=== PATIENT | female | born 1945 | race Caucasian/White ===

== ENCOUNTER 2018-05-26 08:31 | Observation (INO) | payer MEDICARE, OTHER ==
[2018-05-26] MEDS ORDERED: LORAZEPAM 0.5 MG TAB PO (12:00)
[2018-05-26] MEDS ORDERED: ZOLPIDEM 5 MG TAB PO (12:00)
[2018-05-26] MEDS ORDERED: ONDANSETRON 4 MG INJ IV (12:00)
[2018-05-26 12:44] LABS: CREATINE KINASE 71 IU/L (23-200)
[2018-05-26 12:56] LABS: CK INDEX 1.9; CK-MB 1.38 ng/ml (0.0-2.4); TROPONIN-I 0.043 ng/ml (0.000-0.120)
[2018-05-26] MEDS: AMLODIPINE 5 MG TAB PO (13:00)
[2018-05-26 16:49] LABS: ADD UMIC YES; UR ASCORBIC ACID NEGATIVE (NEGATIVE); UR BACTERIA FEW /HPF (NONE SEEN); UR BILIRUBIN (Dip) NEGATIVE (NEGATIVE); UR BLOOD (Dip) NEGATIVE (NEGATIVE); UR CLARITY SLIGHTLY CLOUDY (CLEAR); UR COLOR YELLOW (YELLOW); UR GLUCOSE (Dip) NEGATIVE (NEGATIVE); UR KETONES (Dip) NEGATIVE (NEGATIVE); UR LEUKOCYTE ESTERASE (Dip) 1+ Leu/ul (NEGATIVE); UR NITRITE (Dip) NEGATIVE (NEGATIVE); UR RBC 1 /HPF (0-5); UR SPECIFIC GRAVITY (Dip) 1.015 (1.003-1.030); UR SQUAMOUS EPITHELIAL CELL FEW /HPF (FEW); UR TOTAL PROTEIN (Dip) NEGATIVE (NEGATIVE); UR UROBILINOGEN (Dip) NEGATIVE (NEGATIVE); UR WBC 6 /HPF (0-5)
[2018-05-26] MEDS: PANTOPRAZOLE 40 MG INJ IV (17:48)
[2018-05-26 19:28] LABS: CREATINE KINASE 107 IU/L (23-200)
[2018-05-26 19:41] LABS: CK INDEX 1.9; CK-MB 2.05 ng/ml (0.0-2.4); TROPONIN-I 0.028 ng/ml (0.000-0.120)
[2018-05-26] MEDS: DOCUSATE SODIUM 100 MG CAP PO (21:00)
[2018-05-26] MEDS: SOD CHLORIDE 0.9% 1,000 ML IV (21:52)
[2018-05-27] MEDS: PANTOPRAZOLE 40 MG INJ IV ×2 (05:42→17:12)
[2018-05-27] MEDS ORDERED: PANTOPRAZOLE (EC) 40 MG TAB PO (06:00)
[2018-05-27 06:41] LABS: ADD MAN DIFF? NO
[2018-05-27 06:57] LABS: BASOPHILS % 0.2 % (0.0-2.0); EOSINOPHILS # 0.1 10^3/ul (0.0-0.5); EOSINOPHILS % 1.2 % (0.0-7.0); HEMATOCRIT 34.8 % (37.0-47.0); HEMOGLOBIN 10.6 g/dl (12.0-16.0); LYMPHOCYTES # 1.8 10^3/ul (0.8-2.9); LYMPHOCYTES % 27.5 % (15.0-51.0); MEAN CORPUSCULAR HGB CONC 30.5 g/dl (32.0-37.0); MEAN CORPUSCULAR VOLUME 88.5 fl (82.0-101.0); MEAN PLATELET VOLUME 10.4 fl (7.4-10.4); MONOCYTE # 0.6 10^3/ul (0.3-0.9); MONOCYTES % 8.5 % (0.0-11.0); NEUTROPHIL # 4.1 10^3/ul (1.6-7.5); NEUTROPHILS % 62.3 % (39.0-77.0); PLATELET COUNT 181 10^3/UL (140-415); RED BLOOD COUNT 3.93 10^6/ul (4.20-5.40); RED CELL DISTRIBUTION WIDTH 14.3 % (11.5-14.5)
[2018-05-27 06:57] LABS: WHITE BLOOD COUNT 6.5 10^3/ul (4.8-10.8)
[2018-05-27 07:30] LABS: ANION GAP 10 (5-13); BLOOD UREA NITROGEN 8 mg/dl (7-20); CALCIUM 7.9 mg/dl (8.4-10.2); CARBON DIOXIDE 26 mmol/L (21-31); CHLORIDE 110 mmol/L (97-110); CHOL/HDL RATIO 3.4 RATIO; CHOLESTEROL 124 mg/dl (100-200); CREATININE 0.75 mg/dl (0.44-1.00); GLUCOSE 94 mg/dl (70-220); HDL CHOLESTEROL 36 mg/dl (33-92); LDL CHOLESTEROL,CALCULATED 69 mg/dl; POTASSIUM 3.5 mmol/L (3.5-5.1); SODIUM 146 mmol/L (135-144); TRIGLYCERIDES 96 mg/dl (0-149)
[2018-05-27] MEDS: DOCUSATE SODIUM 100 MG CAP PO ×2 (09:00→20:43)
[2018-05-27] MEDS: LORATADINE 10 MG TAB PO (09:43)
[2018-05-27] MEDS: AMLODIPINE 5 MG TAB PO (09:44)
[2018-05-27] MEDS: ASPIRIN (EC) 81 MG TAB PO (09:44)
[2018-05-27] MEDS: ENOXAPARIN 40 MG/0.4 ML SYG SC (09:59)
[2018-05-27] MEDS: SOD CHLORIDE 0.9% 1,000 ML IV (11:26)
[2018-05-27] MEDS: PROPOFOL 20 ML (16:18)
[2018-05-27] MEDS ORDERED: ONDANSETRON 4 MG INJ IV (16:30)
[2018-05-27] MEDS ORDERED: METOCLOPRAMIDE 10 MG INJ IV (16:30)
[2018-05-27] MEDS ORDERED: hydrALAzine 20 MG INJ IV (16:30)
[2018-05-27] MEDS ORDERED: EPHEDrine SULFATE 50 MG/5 ML SYG IV (16:30)
[2018-05-27] MEDS ORDERED: LABETALOL HCL 20MG INJ IV (16:30)
[2018-05-27] MEDS ORDERED: FENTAnyl 50 MCG/ML VIAL IV ×2 (16:30)
[2018-05-27] MEDS ORDERED: morphine (1 MG/ML) 10ML SYRINGE IV ×2 (16:30)
[2018-05-27] MEDS: ACETAMINOPHEN 325 MG TAB PO (23:10)
[2018-05-28] MEDS: PANTOPRAZOLE 40 MG INJ IV ×2 (06:20→17:40)
[2018-05-28] MEDS: DOCUSATE SODIUM 100 MG CAP PO ×2 (09:29→22:00)
[2018-05-28] MEDS: ASPIRIN (EC) 81 MG TAB PO (09:30)
[2018-05-28] MEDS: AMLODIPINE 5 MG TAB PO (09:30)
[2018-05-28] MEDS: ENOXAPARIN 40 MG/0.4 ML SYG SC (09:42)
[2018-05-28] MEDS: LORATADINE 10 MG TAB PO (11:01)
[2018-05-28] MEDS: CEFTRIAXONE 1 GM/50 ML (PMX) 50 ML IVPB (17:33)
== END 2018-05-28 22:07 | disposition home or self-care (01) ==
LOC: TEL 05-27 05:07
DX: K29.50 Unspecified chronic gastritis without bleeding (principal); I10 Essential (primary) hypertension; R19.7 Diarrhea, unspecified
CPT/HCPCS: 43239; 80048; 80061; 81001; 82550; 82553; 83735; 84484; 85025; 87045; 87075; 87086; 88305; 88312; 99217; G0378